=== PATIENT | female | born 1970 | race Two or more races ===

== ENCOUNTER 2017-12-04 20:44 | Emergency (ER) | payer SELFPAY ==
[2017-12-04] MEDS ORDERED: NORMAL SALINE 1000 ML 1,000 ML IV ONE (22:32)
[2017-12-04] MEDS ORDERED: ONDANSETRON HCL INJ/PF 4 MG/2 ML SDV IV ONE (22:33)
[2017-12-04] MEDS ORDERED: MORPHINE SULFATE 10 MG/ML INJ IV ONE (22:33)
[2017-12-04] MEDS ORDERED: KETOROLAC TROMETHAMINE INJ/PF 30 MG/1 ML SDV IV ONE (22:33)
--- NOTE | 2017-12-04 22:38 | ER Document Report ---
ED General - General Chief Complaint: Possible Kidney Stone Stated Complaint: FLANK PAIN Time Seen by Provider: 12/04/17 22:32 TRAVEL OUTSIDE OF THE [place] IN LAST 30 DAYS: No - HPI Notes: Patient is a 46-year-old female with a history of kidney stones who presents ED complaining of left flank pain, urinary urgency, voiding small amounts 5 hours. Patient states that she also has associated nausea and vomiting because of the pain. Patient states that her flank pain radiates around to her left groin. Patient states that she did take half of a Percocet prior to arrival and noted that those tablets are 2 years old. Denies any headache, fever, URI, sore throat, chest pain, palpitations, syncope, cough, shortness of breath, wheeze, dyspnea, diarrhea, urinary retention, dysuria, hematuria, loss of control of bowel or bladder, numbness/tingling, saddle anesthesia, muscle paralysis/weakness, or rash. - Related Data Allergies/Adverse Reactions: cefoxitin [Cefoxitin] Allergy (Severe, Verified 12/04/17 20:51) Anaphylaxis Sulfa (Sulfonamide Antibiotics) Allergy (Verified 12/04/17 20:51) codeine [Codeine] Adverse Reaction (Severe, Verified 12/04/17 20:51) VOMITING hydrocodone bitartrate [From Vicodin] Adverse Reaction (Severe, Verified 20:51) projectile vomiting oxycodone HCl [From Percocet] Adverse Reaction (Severe, Verified 12/04/17 20:51) projectile vomiting Past Medical History - Social History Smoking Status: Never Smoker Family History: Reviewed & Not Pertinent Pulmonary Medical History: Reports: Hx Pneumonia Endocrine Medical History: Reports: Hx Diabetes Mellitus Type 2, Hx Hypothyroidism Renal/ Medical History: Reports: Hx Kidney Stones GI Medical History: Reports: Hx Ulcer Traumatic Medical History: Reports: Hx Fractures - finger Past Surgical History: Reports: Hx Appendectomy, Hx Kidney (Renal Surgery) - biopsy right kidney, Hx Mastectomy - lumpectomy, left, Hx Tonsillectomy, Hx Tubal Ligation - Immunizations Hx Diphtheria, Pertussis, Tetanus Vaccination: Yes Review of Systems - Review of Systems Notes: REVIEW OF SYSTEMS: CONSTITUTIONAL : Denies fever, chills, or sweats. Denies recent illness. EENT: Denies eye, ear, throat, or mouth pain or symptoms. Denies nasal or sinus congestion or discharge. Denies throat, tongue, or mouth swelling or difficulty swallowing. CARDIOVASCULAR: Denies chest pain. Denies palpitations or racing or irregular heart beat. Denies ankle edema. RESPIRATORY: Denies cough, cold, or chest congestion. Denies shortness of breath, difficulty breathing, or wheezing. GASTROINTESTINAL: see hpi GENITOURINARY: see hpi FEMALE GENITOURINARY: Denies vaginal bleeding, heavy or abnormal periods, irregular periods. Denies vaginal discharge or odor. MUSCULOSKELETAL: see hpi SKIN: Denies rash, lesions or sores. NEUROLOGICAL: Denies confusion or altered mental status. Denies passing out or loss of consciousness. Denies dizziness or lightheadedness. Denies headache. Denies weakness or paralysis or loss of use of either side. Denies problems with gait or speech. Denies sensory loss, numbness, or tingling. Denies seizures. ALL OTHER SYSTEMS REVIEWED AND NEGATIVE. Dictation was performed using [employer] voice recognition software Physical Exam - Vital signs Vitals: Temp Pulse Resp BP Pulse Ox 98.8 F 93 18 177/96 H 95 12/04/17 22:01 12/04/17 22:01 12/04/17 22:01 12/04/17 22:01 12/04/17 22:01 Notes: PHYSICAL EXAMINATION: GENERAL: Well-appearing, well-nourished and in no acute respiratory distress, but does appear to be in discomfort. A&Ox4 LUNGS: Breath sounds clear to auscultation bilaterally and equal. No wheezes rales or rhonchi. HEART: Regular rate and rhythm without murmurs, rubs, gallops. ABDOMEN: Soft, nontender, nondistended abdomen. No guarding, no rebound. No masses appreciated. Normal bowel sounds present. No CVA tenderness bilaterally. Musculoskeletal: FROM to passive/active. Strength 5+/5. Back: FROM. Strength 5+/5. Non-tender. No obvious erythema or ecchymosis. Extremities: No cyanosis, clubbing, or edema b/l. Peripheral pulses 2+. Capillary refill less than 3 seconds. NEUROLOGICAL: Normal speech, normal gait. Normal sensory, motor exams PSYCH: Normal mood, normal affect. SKIN: Warm, Dry, normal turgor, no rashes or lesions noted. Course - Re-evaluation Re-evalutation: 12/05/17 00:22 Patient is an afebrile, well-hydrated, 46-year-old female who presents to the ED with a sub-5 mm distal ureteral calculi on the left side without urosepsis. Vitals are stable. PE is otherwise unremarkable. CBC showed a mildly elevated white count, but patient has been vomiting. CMP and urinalysis are otherwise unremarkable for any acute pathology. Patient was given fluids, Zofran, morphine, and Toradol. Low suspicion/risk for acute appendicitis, bowel obstruction, acute cholecystitis, acute cholangitis, perforated diverticulitis, incarcerated hernia, pancreatitis, perforated ulcer, peritonitis, sepsis, pelvic inflammatory disease, ectopic , tubo-ovarian abscess, ovarian torsion, or other systemic emergent condition at this time. Patient is aware that her condition can change from initial presentation and she needs to monitor symptoms closely and seek medical attention if any acute changes. Conservative measures otherwise for symptoms. Recheck with your PCM in 3-5 days. Consider consult with a Urologist. Return to the ED with any worsening/ concerning symptoms otherwise as reviewed in discharge. Patient is in agreement. - Vital Signs Vital signs: Temp Pulse Resp BP Pulse Ox 98.8 F 93 18 177/96 H 95 12/04/17 22:01 12/04/17 22:01 12/04/17 22:01 12/04/17 22:01 12/04/17 22:01 - Laboratory Result Diagrams: 12/04/17 22:20 12/04/17 22:20 Laboratory results interpreted by me: 12/04/17 22:20 WBC 15.5 H RDW 14.1 H Seg Neutrophils % 78.7 H Absolute Neutrophils 12.2 H Discharge - Discharge Clinical Impression: Ureteral stone Condition: Stable Disposition: HOME, SELF-CARE Instructions: Kidney Stone ([facility]) Additional Instructions: Maintain adequate fluid and food intake P[place]as diet ([employer] Bananas, rice, apples, toast, etc Zofran as needed Take flomax as directed tylenol if needed Monitor for any worsening symptoms Make sure you are staying hydrated enough to urinate and have normal BM's Recheck with your PCM in 3-5 days Consider consult with Urology for ongoing/worsening symptoms Return to the ED with any worsening symptoms and/or development of fever, headache, chest pain, palpitations, syncope, shortness of breath, trouble breathing, abdominal pain, n/v/d, blood in stool/urine, weakness, or other worsening symptoms that are concerning to you. Prescriptions: Morphine Sulfate [Morphine Ir 15 Mg Tablet] 15 mg PO QID PRN #10 tablet PRN Reason: Ondansetron [Zofran Odt 4 mg Tablet] 1 - 2 tab PO Q4H PRN #15 tab.rapdis PRN Reason: For Nausea/Vomiting Tamsulosin HCl [Flomax] 0.4 mg PO DAILY #10 cap.er.24h Forms: Elevated Blood Pressure Referrals: LINDSEY MERCADO MD [Primary Care Provider] - Follow up in 3-5 days [facility] [Provider Group] - Follow up as needed
[2017-12-04 22:55] LABS: ABSOLUTE BASOPHILS # (AUTO) 0.1 10^3/uL (0.0-0.2); ABSOLUTE EOSINOPHILS # (AUTO) 0.2 10^3/uL (0.0-0.6); ABSOLUTE NEUT (AUTO) 12.2 10^3/uL (1.7-8.2); BASOPHILS % (AUTO) 0.5 % (0-2); EOSINOPHILS % (AUTO) 1.2 % (0-6); HEMATOCRIT 40.9 % (36.0-47.0); HEMOGLOBIN 13.3 g/dL (12.0-15.5); LYMPHOCYTES % (AUTO) 13.1 % (13-45); MEAN CORPUSCULAR HGB CONC 32.6 g/dL (32.0-36.0); MEAN CORPUSCULAR VOLUME 83 fl (80-97); MONOCYTES % (AUTO) 6.5 % (3-13); PLATELET COUNT 340 10^3/uL (150-450); RED BLOOD COUNT 4.93 10^6/uL (3.72-5.28); RED CELL DISTRIBUTION WIDTH 14.1 % (11.5-14.0); SEGMENTED NEUTROPHILS % (AUTO) 78.7 % (42-78); TOTAL CELLS COUNTED % (AUTO) 100 %; WHITE BLOOD COUNT 15.5 10^3/uL (4.0-10.5)
[2017-12-04 23:07] LABS: APPEARANCE,URINE SLIGHTLY-CLOUDY; BILIRUBIN,URINE NEGATIVE (NEGATIVE); COLOR,URINE YELLOW; GLUCOSE, URINE NEGATIVE (NEGATIVE); KETONES,URINE NEGATIVE (NEGATIVE); LEUKOCYTE ESTERASE,URINE NEGATIVE (NEGATIVE); NITRITE,URINE NEGATIVE (NEGATIVE); PROTEIN,URINE NEGATIVE (NEGATIVE); URINE SPECIFIC GRAVITY 1.012; UROBILINOGEN,URINE NEGATIVE mg/dL (<2.0)
[2017-12-04 23:28] LABS: ALANINE AMINOTRANSFERASE 25 U/L (9-52); ALBUMIN 4.7 g/dL (3.5-5.0); ALKALINE PHOSPHATASE 76 U/L (38-126); ANION GAP 13 (5-19); ASPARTATE AMINO TRANSFERASE 22 U/L (14-36); BILIRUBIN,DIRECT 0.3 mg/dL (0.0-0.4); BILIRUBIN,TOTAL 0.3 mg/dL (0.2-1.3); BLOOD UREA NITROGEN 18 mg/dL (7-20); CARBON DIOXIDE 26 mmol/L (22-30); CHLORIDE 100 mmol/L (98-107); GLUCOSE 94 mg/dL (75-110); LIPASE 64.6 U/L (23-300); POTASSIUM 3.9 mmol/L (3.6-5.0); SODIUM 139.1 mmol/L (137-145); TOTAL PROTEIN 7.7 g/dL (6.3-8.2)
--- NOTE | 2017-12-05 00:02 | RADIOLOGY REPORT (SQ) ---
EXAM DESCRIPTION: CT LTD RENAL STONE PROTOCOL ON COMPLETED DATE/TIME: 12/04/2017 11:51 pm REASON FOR STUDY: left flank pain COMPARISON: 04/17/2016 TECHNIQUE: CT scan of the abdomen and pelvis performed without intravenous or oral contrast. Images reviewed with lung, soft tissue, and bone windows. Reconstructed coronal and sagittal MPR images revi ewed. All images stored on PACS. All CT scanners at this facility use dose modulation, iterative reconstruction, and/or weight based d osing when appropriate to reduce radiation dose to as low as reasonably achievable (ALARA). [facility]: Dose Right [facility]: CareDose [facility]: Dose Right [facility]: Teradose 4D [facility]: Smart [employer] RADIATION DOSE: mGy. LIMITATIONS: None. FINDINGS: LOWER CHEST: No significant findings. No nodules or infiltrates. NON-CONTRASTED LIVER, SPLEEN, ADRENALS: Evaluation limited by lack of IV contrast. No identified sign ificant masses. PANCREAS: No masses. No peripancreatic inflammatory changes. GALLBLADDER: No identified stones by CT criteria. No inflammatory changes to suggest cholecystitis. RIGHT KIDNEY AND URETER: No suspicious masses. Assessment limited by lack of IV contrast. No signif icant calcifications. No hydronephrosis or hydroureter. LEFT KIDNEY AND URETER: No suspicious masses. Assessment limited by lack of IV contrast. No signifi cant calcifications. Mild hydronephrosis and hydroureter secondary to U tandem sub 5 mm calculi the UV junction. AORTA AND RETROPERITONEUM: No aneurysm. No retroperitoneal masses or adenopathy. BOWEL AND PERITONEAL CAVITY: No obvious masses or inflammatory changes. No free fluid. APPENDIX: Surgically absent. PELVIS, BLADDER, AND ABDOMINAL WALL:No abnormal masses. No free fluid. Bladder normal. BONES: No significant findings. OTHER: No other significant finding. IMPRESSION: Mild obstructive uropathy on the left secondary to tandem sub 5 mm calculi in the distal left ureter. COMMENT: Quality ID # [id number]: Final reports with documentation of one or more dose reduction techniques (e.g., Automated exposure control, adjustment of the mA and/or kV according to patient size, use of iterative reconstruction technique) TECHNICAL DOCUMENTATION: JOB ID: [id number]- All Rights Reserved
[2017-12-05] MEDS ORDERED: HYDROCODONE/ACETAMINOPHEN 5-325 MG (6 TAB/ER DISP) PO PRN (00:25)
[2017-12-05 01:01] VITALS: BP 133/81
== END 2017-12-05 01:36 | disposition home or self-care (01) ==
LOC: ER 20:44
DX: N20.1 Calculus of ureter (principal); R10.9 Unspecified abdominal pain; R39.15 Urgency of urination
CPT/HCPCS: 99284; 96361; 96374; 96375; 36415; 87086; 83690; 85025; 80053; 81001; 76380; J1885; J2270; J2405; J7030

== ENCOUNTER 2017-12-17 10:18 | Emergency (ER) | payer SELFPAY ==
[2017-12-17] MEDS ORDERED: KETOROLAC TROMETHAMINE 60 MG/2 ML SDV IM ONE (10:41)
[2017-12-17] MEDS ORDERED: ONDANSETRON 4 MG TAB.RAPDIS PO ONE ×2 (10:41→12:46)
[2017-12-17] MEDS ORDERED: NORMAL SALINE 1000 ML 1,000 ML IV ONE ×2 (10:43→10:46)
--- NOTE | 2017-12-17 10:43 | ER Document Report ---
ED Medical Screen (RME) - General Mode of Arrival: Ambulatory Information source: Patient TRAVEL OUTSIDE OF THE [place] 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 Was found to have kidney stone on the left, multiple, urine dipstick postitive nitrite and leuk in the office. Still on Flomax. No fever. Nausea with some vomiting. Pain 5/5. (DOING,GUZMAN) - Related Data Allergies/Adverse Reactions: cefoxitin [Cefoxitin] Allergy (Severe, Verified 12/04/17 20:51) Anaphylaxis Sulfa (Sulfonamide Antibiotics) Allergy (Verified 12/04/17 20:51) codeine [Codeine] Adverse Reaction (Severe, Verified 12/04/17 20:51) VOMITING hydrocodone bitartrate [From Vicodin] Adverse Reaction (Severe, Verified 20:51) projectile vomiting oxycodone HCl [From Percocet] Adverse Reaction (Severe, Verified 12/04/17 20:51) projectile vomiting Past Medical History Pulmonary Medical History: Reports: Hx Pneumonia Endocrine Medical History: Reports: Hx Diabetes Mellitus Type 2, Hx Hypothyroidism Renal/ Medical History: Reports: Hx Kidney Stones. Denies: Hx Peritoneal Dialysis GI Medical History: Reports: Hx Ulcer Traumatic Medical History: Reports: Hx Fractures - finger Past Surgical History: Reports: Hx Appendectomy, Hx Kidney (Renal Surgery) - biopsy right kidney, Hx Mastectomy - lumpectomy, left, Hx Tonsillectomy, Hx Tubal Ligation - Immunizations Hx Diphtheria, Pertussis, Tetanus Vaccination: Yes - Vital signs Vitals: Temp Pulse Resp BP Pulse Ox 98.8 F 99 20 178/103 H 98 12/17/17 10:37 12/17/17 10:37 12/17/17 10:37 12/17/17 10:37 12/17/17 10:37 - Vital Signs Vital signs: Temp Pulse Resp BP Pulse Ox 98.8 F 99 20 178/103 H 98 12/17/17 10:37 12/17/17 10:37 12/17/17 10:37 12/17/17 10:37 12/17/17 10:37
[2017-12-17] MEDS ORDERED: MORPHINE SULFATE 10 MG/ML INJ IM ONE (10:45)
[2017-12-17 11:51] LABS: APPEARANCE,URINE CLEAR; BILIRUBIN,URINE NEGATIVE (NEGATIVE); COLOR,URINE YELLOW; GLUCOSE, URINE NEGATIVE (NEGATIVE); KETONES,URINE NEGATIVE (NEGATIVE); LEUKOCYTE ESTERASE,URINE NEGATIVE (NEGATIVE); NITRITE,URINE NEGATIVE (NEGATIVE); PROTEIN,URINE NEGATIVE (NEGATIVE); URINE SPECIFIC GRAVITY 1.014; UROBILINOGEN,URINE NEGATIVE mg/dL (<2.0)
--- NOTE | 2017-12-17 12:07 | RADIOLOGY REPORT (SQ) ---
EXAM DESCRIPTION: CT LTD RENAL STONE PROTOCOL ON COMPLETED DATE/TIME: 12/17/2017 11:40 am REASON FOR STUDY: left flank LLQ pain COMPARISON: 12/04/2017. TECHNIQUE: CT scan of the abdomen and pelvis performed without intravenous or oral contrast. Images reviewed with lung, soft tissue, and bone windows. Reconstructed coronal and sagittal MPR images revi ewed. All images stored on PACS. All CT scanners at this facility use dose modulation, iterative reconstruction, and/or weight based d osing when appropriate to reduce radiation dose to as low as reasonably achievable (ALARA). [facility]: Dose Right [facility]: CareDose [facility]: Dose Right [facility]: Teradose 4D [facility]: Smart [employer] RADIATION DOSE: CT Rad equipment meets quality standard of care and radiation dose reduction techniq ues were employed. CTDIvol: 6.7 mGy. DLP: 352 mGy-cm.mGy. LIMITATIONS: None. FINDINGS: LOWER CHEST: No significant findings. No nodules or infiltrates. NON-CONTRASTED LIVER, SPLEEN, ADRENALS: Evaluation limited by lack of IV contrast. No identified sign ificant masses. PANCREAS: No masses. No peripancreatic inflammatory changes. GALLBLADDER: No identified stones by CT criteria. No inflammatory changes to suggest cholecystitis. RIGHT KIDNEY AND URETER: No suspicious masses. Assessment limited by lack of IV contrast. No signif icant calcifications. No hydronephrosis or hydroureter. LEFT KIDNEY AND URETER: No suspicious masses. Assessment limited by lack of IV contrast. Calculi in the distal ureter at the ureteral vesicular junction, measuring 2 and 4 mm. Moderate hydronephrosi s and hydroureter. AORTA AND RETROPERITONEUM: No aneurysm. No retroperitoneal masses or adenopathy. BOWEL AND PERITONEAL CAVITY: No obvious masses or inflammatory changes. No free fluid. APPENDIX: Surgically absent. PELVIS, BLADDER, AND ABDOMINAL WALL:No abnormal masses. No free fluid. Bladder normal. BONES: No significant findings. OTHER: No other significant finding. IMPRESSION: 1. CALCULI IN THE DISTAL LEFT URETER AT THE URETEROVESICULAR JUNCTION, MEASURING 2 AND 4 MM. MODERAT E HYDRONEPHROSIS AND HYDROURETER. SIMILAR APPEARANCE TO THE PRIOR STUDY ALTHOUGH THE DEGREE OF HYDRO NEPHROSIS AND HYDROURETER APPEARS SLIGHTLY WORSE. 2. NO OTHER SIGNIFICANT OR ACUTE PROCESS IN THE ABDOMEN OR PELVIS. COMMENT: Quality ID # [id number]: Final reports with documentation of one or more dose reduction techniques (e.g., Automated exposure control, adjustment of the mA and/or kV according to patient size, use of iterative reconstruction technique) TECHNICAL DOCUMENTATION: JOB ID: [id number] [employer]- All Rights Reserved
[2017-12-17] MEDS ORDERED: MORPHINE SULFATE 10 MG/ML INJ IV ONE (12:46)
--- NOTE | 2017-12-17 12:53 | ER Document Report ---
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 Nausea with vomiting. Severe pain 5/5. No fever. dipstick urine had leuk and positive nitrite in the office. TRAVEL OUTSIDE OF THE [place] IN LAST 30 DAYS: No - Related Data Allergies/Adverse Reactions: cefoxitin [Cefoxitin] Allergy (Severe, Verified 12/04/17 20:51) Anaphylaxis Sulfa (Sulfonamide Antibiotics) Allergy (Verified 12/04/17 20:51) codeine [Codeine] Adverse Reaction (Severe, Verified 12/04/17 20:51) VOMITING hydrocodone bitartrate [From Vicodin] Adverse Reaction (Severe, Verified 20:51) projectile vomiting oxycodone HCl [From Percocet] Adverse Reaction (Severe, Verified 12/04/17 20:51) projectile vomiting Past Medical History - General Information source: Patient - Social History Smoking Status: Never Smoker Chew tobacco use (# tins/day): No Frequency of alcohol use: None Drug Abuse: None Lives with: Spouse/Significant other Family History: Reviewed & Not Pertinent Patient has suicidal ideation: No Patient has homicidal ideation: No Pulmonary Medical History: Reports: Hx Pneumonia Endocrine Medical History: Reports: Hx Diabetes Mellitus Type 2, Hx Hypothyroidism Renal/ Medical History: Reports: Hx Kidney Stones. Denies: Hx Peritoneal Dialysis GI Medical History: Reports: Hx Ulcer Traumatic Medical History: Reports: Hx Fractures - finger Past Surgical History: Reports: Hx Appendectomy, Hx Kidney (Renal Surgery) - biopsy right kidney, Hx Mastectomy - lumpectomy, left, Hx Tonsillectomy, Hx Tubal Ligation - Immunizations Hx Diphtheria, Pertussis, Tetanus Vaccination: Yes Review of Systems - Review of Systems Constitutional: No symptoms reported EENT: No symptoms reported Cardiovascular: No symptoms reported Respiratory: No symptoms reported Gastrointestinal: No symptoms reported Genitourinary: See HPI Female Genitourinary: No symptoms reported Musculoskeletal: No symptoms reported Skin: No symptoms reported Hematologic/Lymphatic: No symptoms reported Neurological/Psychological: No symptoms reported Physical Exam - Vital signs Vitals: Temp Pulse Resp BP Pulse Ox 98.8 F 99 20 178/103 H 98 12/17/17 10:37 12/17/17 10:37 12/17/17 10:37 12/17/17 10:37 12/17/17 10:37 Interpretation: Hypertensive - General General appearance: Appears well, Alert, Anxious In distress: Severe - HEENT Head: Normocephalic, Atraumatic Eyes: Normal Pupils: PERRL Neck: Supple - Respiratory Respiratory status: No respiratory distress Chest status: Nontender Breath sounds: Normal Chest palpation: Normal - Cardiovascular Rhythm: Regular Heart sounds: Normal auscultation Murmur: No - Abdominal Inspection: Normal Distension: No distension Bowel sounds: Normal Tenderness: Nontender. No: Tender Organomegaly: No organomegaly - Back Back: Normal, Nontender. No: CVA tenderness - Extremities General upper extremity: Normal inspection, Nontender, Normal color, Normal ROM , Normal temperature General lower extremity: Normal inspection, Nontender, Normal color, Normal ROM , Normal temperature, Normal weight bearing. No: Nica's sign - Neurological Neuro grossly intact: Yes Cognition: Normal Orientation: AAOx4 [place] Coma Scale Eye Opening: Spontaneous Hernando Coma Scale Verbal: Oriented Hernando Coma Scale Motor: Obeys Commands [place] Coma Scale Total: 15 Speech: Normal Motor strength normal: LUE, RUE, LLE, RLE Sensory: Normal - Psychological Associated symptoms: Normal affect, Normal mood - Skin Skin Temperature: Warm Skin Moisture: Dry Skin Color: Normal Skin irregularity: negative: Rash Course - Re-evaluation Re-evalutation: 12/17/17 12:57 CT scan shows similar distal left ureter stones 2 and 4 mm with moderate hydronephrosis and hydroureter ureter which is slightly worse. I have placed a call to [facility]. Patient would prefer to see a urologist in [place]. 12/17/17 13:24 Dr. [facility] is willing to see he in [place], if someone is in [place] office. He will call me back, wants her to continue the flomax. 12/17/17 13:40 pt vomiting again, reglan IV ordered. will send home with pain rx pending the urology visit tomorrow. - Vital Signs Vital signs: Temp Pulse Resp BP Pulse Ox 97.8 F 72 18 140/78 H 99 12/17/17 13:12 12/17/17 13:12 12/17/17 13:12 12/17/17 13:12 12/17/17 13:12 - Laboratory Result Diagrams: 12/17/17 11:53 12/17/17 11:53 Laboratory results interpreted by me: 12/17/17 11:53 WBC 13.4 H RDW 14.2 H Absolute Neutrophils 10.3 H Discharge - Discharge Clinical Impression: distal left ureter stones Condition: Good Disposition: HOME, SELF-CARE Additional Instructions: see dr. pina tomorrow at [facility] at 9 am, take the flomax pain and nausea medication prescriptions to er if worse Prescriptions: Oxycodone HCl/Acetaminophen [Percocet 10-325 Mg Tablet] 1 each PO Q4HP PRN #20 tablet PRN Reason: Ondansetron [Zofran Odt] 8 mg PO Q6HP PRN #30 tab.rapdis PRN Reason: Tamsulosin HCl [Flomax 0.4 mg Cap.sr] 0.4 mg PO DAILY #7 cap.sr.24h Forms: Return to Work Referrals: LINDSEY MERCADO MD [Primary Care Provider] - Follow up as needed
[2017-12-17 13:12] LABS: ALANINE AMINOTRANSFERASE 25 U/L (9-52); ALBUMIN 4.6 g/dL (3.5-5.0); ALKALINE PHOSPHATASE 69 U/L (38-126); ANION GAP 9 (5-19); ASPARTATE AMINO TRANSFERASE 18 U/L (14-36); BILIRUBIN,DIRECT 0.4 mg/dL (0.0-0.4); BILIRUBIN,TOTAL 0.4 mg/dL (0.2-1.3); BLOOD UREA NITROGEN 15 mg/dL (7-20); CALCIUM 10.2 mg/dL (8.4-10.2); CARBON DIOXIDE 27 mmol/L (22-30); CHLORIDE 103 mmol/L (98-107); GLUCOSE 105 mg/dL (75-110); POTASSIUM 4.8 mmol/L (3.6-5.0); SODIUM 138.9 mmol/L (137-145); TOTAL PROTEIN 7.8 g/dL (6.3-8.2)
[2017-12-17 13:13] VITALS: BP 140/78
[2017-12-17] MEDS ORDERED: METOCLOPRAMIDE HCL INJ/PF 10 MG/2 ML SDV IV ONE (13:40)
[2017-12-17 13:48] LABS: ABSOLUTE BASOPHILS # (AUTO) 0.1 10^3/uL (0.0-0.2); ABSOLUTE EOSINOPHILS # (AUTO) 0.2 10^3/uL (0.0-0.6); ABSOLUTE LYMPHOCYTES (AUTO) 1.8 10^3/uL (0.5-4.7); ABSOLUTE NEUT (AUTO) 10.3 10^3/uL (1.7-8.2); BASOPHILS % (AUTO) 0.7 % (0-2); EOSINOPHILS % (AUTO) 1.5 % (0-6); HEMATOCRIT 40.7 % (36.0-47.0); HEMOGLOBIN 13.4 g/dL (12.0-15.5); LYMPHOCYTES % (AUTO) 13.5 % (13-45); MEAN CORPUSCULAR HEMOGLOBIN 27.5 pg (27.0-33.4); MEAN CORPUSCULAR VOLUME 83 fl (80-97); MONOCYTES % (AUTO) 7.7 % (3-13); PLATELET COUNT 296 10^3/uL (150-450); RED BLOOD COUNT 4.89 10^6/uL (3.72-5.28); RED CELL DISTRIBUTION WIDTH 14.2 % (11.5-14.0); SEGMENTED NEUTROPHILS % (AUTO) 76.6 % (42-78); TOTAL CELLS COUNTED % (AUTO) 100 %; WHITE BLOOD COUNT 13.4 10^3/uL (4.0-10.5)
== END 2017-12-17 14:21 | disposition home or self-care (01) ==
LOC: ER 10:18
DX: N20.1 Calculus of ureter (principal); R10.32 Left lower quadrant pain; R11.2 Nausea with vomiting, unspecified
CPT/HCPCS: 99284; 96372; 96361; 96374; 96375; 36415; 87086; 85025; 80053; 81001; 76380; J1885; S0119; J2765; J2270; J7030

== ENCOUNTER 2018-08-13 14:17 | Emergency (ER) | payer SELFPAY ==
[2018-08-13 14:30] VITALS: BP 115/64
--- NOTE | 2018-08-13 14:41 | ER Document Report ---
HPI - HPI Pain Level: 3 Notes: Patient presents with chief complaint of left ankle and left knee pain. Patient reports she was walking down some stairs when she landed wrong and felt a large pop. Patient then fell to the ground onto her left knee. Patient was transported to the ED via EMS where she received 100 mcg of fentanyl and 8 mg of Zofran IV. Patient currently denies any pain, ankle is immobilized. - REPRODUCTIVE Reproductive: DENIES: : Past Medical History - General Information source: Patient - Social History Smoking Status: Never Smoker Family History: Reviewed & Not Pertinent - Medical History Medical History: Negative Pulmonary Medical History: Reports: Hx Pneumonia Endocrine Medical History: Reports: Hx Diabetes Mellitus Type 2, Hx Hypothyroidism Renal/ Medical History: Reports: Hx Kidney Stones. Denies: Hx Peritoneal Dialysis GI Medical History: Reports: Hx Ulcer Traumatic Medical History: Reports: Hx Fractures - finger Past Surgical History: Reports: Hx Appendectomy, Hx Kidney (Renal Surgery) - biopsy right kidney, Hx Mastectomy - lumpectomy, left, Hx Tonsillectomy, Hx Tubal Ligation - Immunizations Hx Diphtheria, Pertussis, Tetanus Vaccination: Yes Vertical Provider Document - CONSTITUTIONAL Agree With Documented VS: Yes Notes: PHYSICAL EXAMINATION: GENERAL: Well-appearing, well-nourished and in no acute distress. HEAD: Atraumatic, normocephalic. EYES: Pupils equal round extraocular movements intact, conjunctiva are normal. ENT: Nares patent NECK: Normal range of motion LUNGS: No respiratory distress Musculoskeletal: Limited range of motion to left ankle, pulses present, capillary refill less than 3 seconds, normal sensation distal to injury. Mild swelling noted to medial aspect of left knee. NEUROLOGICAL: Normal speech. PSYCH: Normal mood, normal affect. SKIN: Warm, Dry, normal turgor, no rashes or lesions noted. - INFECTION CONTROL TRAVEL OUTSIDE OF THE [place] IN LAST 30 DAYS: No Course - Re-evaluation Re-evalutation: 08/13/18 16:23 X-rays negative for any acute findings, patient declines the need for any pain medication other than ibuprofen. Patient will be placed in a ankle stirrup splint with Giles wrap and placed on crutches. - Vital Signs Vital signs: Temp Pulse Resp BP Pulse Ox 98.2 F 77 16 115/64 97 08/13/18 14:28 08/13/18 14:28 08/13/18 14:28 08/13/18 14:28 08/13/18 14:28 Procedures - Immobilization Left ankle Pre-Proc Neuro Vasc Exam: Normal Immobilizer type: Giles wrap, Ankle stirrup, Crutches Performed by: PCT Post-Proc Neuro Vasc Exam: Normal Discharge - Discharge Clinical Impression: Ankle sprain Qualifiers: Encounter type: initial encounter Involved ligament of ankle: unspecified ligament Laterality: left Qualified Code(s): S93.402A - Sprain of unspecified ligament of left ankle, initial encounter Condition: Stable Disposition: HOME, SELF-CARE Additional Instructions: SPRAIN: Your injury is a sprain. A sprain results from stretching or tearing of the ligaments, usually from a twisting injury. The ligaments will require time and protection in order to heal properly. Many sprains are quite disabling and should be taken seriously. The usual initial treatment of sprains is cold packs, elevation, and rest of the injured area. Your physician has assessed the seriousness of your ligament injury, and has outlined a treatment plan. Understand that this treatment may change, depending on how you progress. If a re-examination was recommended, it is important that you follow up as instructed. Call the doctor any time if there is severe pain, numbness, or loss of function in the injured area. GILES WRAP: A compression dressing (giles wrap) has been placed. This helps hold the area still. It limits swelling and internal bleeding. The wrap should be comfortably snug -- not tight. You should feel a sense of pressure, but not severe pain under the wrap. Unless the physician tells you otherwise, you can adjust the wrap for comfort. If the wrap causes symptoms suggesting it's too tight -- uncomfortable pressure, swelling or discoloration beyond the wrap, numbness, or severe pain - - you must loosen the wrap. If these symptoms don't resolve promptly, return for re-evaluation. SPRAINED ANKLE: Your sprained ankle results from stretching or tearing of the ligaments which support the ankle. This usually results from twisting the foot inward and under. The ligaments will require time and protection in order to heal properly. Many ankle sprains are quite disabling, and should be taken seriously. The usual treatment for an ankle sprain is cold packs; protection with tape , splints, or wraps; elevation; and staying off the ankle for at least a day. As the ankle improves, you can walk IF it's not painful to bear weight. Sports are best postponed until healing is complete. More serious sprains usually require strengthening exercises after early healing. Your physician has assessed the seriousness of the ligament injury to your ankle. However, the treatment may change, depending on how your ankle progresses. If further exams were recommended, it is important that you follow through. Call the doctor if your foot becomes numb, painful, or severely swollen. ANKLE STIRRUP SPLINT: You are to use an ankle brace called a stirrup splint. This type of brace allows you to place greater stresses on the ankle without risk of re-injury, and is often used for more severe ankle injuries such as avulsion fractures and ligament ruptures. The splint can be worn over a sock or tape. For proper support, wear the splint with a shoe over it. It's important that the splint fit properly. Adjust the heel tension, if needed. If your splint has air bladders, peel back the bottom of each air bladder, then move the Velcro attachment of the heel strap up or down. Air bladder pressure can be adjusted by pulling up the valve at the top, threading the air tube down into the main bladder, then blowing air into the bladder or squeezing it out. The two sides of the stirrup can be moved forward or back on your ankle by changing the attachment of the main straps. If you are unable to use the ankle comfortably in the splint, return for re -evaluation. USE OF CRUTCHES: The doctor has recommended that you not bear weight at this time. You will need to use crutches. Adjust the crutches so the tops come to about two inches under the armpit while you are standing upright. Use your hands -- not your armpits -- to support your weight. To get into a chair, support yourself with one crutch on the injured side. Hold the chair with the other hand, then lower yourself while putting all your weight on the good leg. Going up stairs is `good leg up, step up, then bring up crutches and bad leg.' Down stairs is `bad leg and crutches down, then bring good leg down.' If you develop numbness or swelling in an arm or hand, you are using the crutches incorrectly. Return if you are having any problems with the crutches. ICE & ELEVATION: Apply ice packs frequently against the painful area. Many different schedules are recommended, such as "20 minutes on, 20 minutes off" or "one hour ice, two hours rest." If you need to work, you may need to go longer between ice treatments. You should plan to have the area ice packed AT LEAST one- fourth of the time. The ice should be applied over the wrap, tape, or splint, or over a layer of cloth -- not directly against the skin. Some ice bags have a built-in cloth and can be put directly on the skin. Your injured part should be elevated as much as possible over the next 48 hours. Try to keep the injury above the level of the heart. Avoid use of the injured area. Elevation and rest will decrease the swelling. USE OF JPLT-GET-FKRGSCP IBUPROFEN: Ibuprofen (Advil, Nuprin, Medipren, Motrin IB) is a medication for fever and pain control. In addition, it has anti- inflammatory effects which may be beneficial, especially in the treatment of injuries. It's best to take ibuprofen with food. Persons with ulcer disease or allergy to aspirin should notify their physician of this before taking ibuprofen. Ibuprofen can be given every four to six hours, for a total of four doses daily. Age Pain or fever dose Antiinflammatory dose 6-8 yr 200 mg (1 tab) 200 mg (1 tab) 9-11 yr 200 mg (1 tab) 200-400 mg (1-2 tab) 11-14 yr 200-400 mg (1-2 tab) 400 mg (2 tab) 15-adult 400 mg (2 tab) 600 mg (3 tab) FOLLOW-UP CARE: If you have been referred to a physician for follow-up care, call the physician s office for an appointment as you were instructed or within the next two days. If you experience worsening or a significant change in your symptoms, notify the physician immediately or return to the Emergency Department at any time for re-evaluation. Your x-ray results today were negative for any acute fracture or dislocation. Please use the ankle stirrup splint as needed for support. Please use the crutches as well, if you do not improve over the next 1-2 weeks she may need to follow-up with an orthopedist. I cannot definitively rule out an internal ligament injury. Prescriptions: Ibuprofen 800 mg PO TID #30 tablet Referrals: LINDSEY MERCADO MD [Primary Care Provider] - Follow up as needed TIAGO FORMAN MD [ACTIVE STAFF] - Follow up as needed
--- NOTE | 2018-08-13 15:40 | RADIOLOGY REPORT (SQ) ---
EXAM DESCRIPTION: ANKLE LEFT COMPLETE COMPLETED DATE/TIME: 08/13/2018 3:33 pm REASON FOR STUDY: fall with pain COMPARISON: None. NUMBER OF VIEWS: Three views. TECHNIQUE: AP, lateral, and oblique radiographic images acquired of the left ankle. LIMITATIONS: None. FINDINGS: MINERALIZATION: Normal. BONES: No acute fracture or dislocation. Plantar calcaneal spur. JOINTS: No effusions. SOFT TISSUES: No soft tissue swelling. No foreign body. OTHER: No other significant finding. IMPRESSION: 1. NEGATIVE STUDY OF THE LEFT ANKLE. 2. Calcaneal spur. TECHNICAL DOCUMENTATION: JOB ID: [id number] [employer]- All Rights Reserved Reading location - IP/workstation name: [email or web address]
--- NOTE | 2018-08-13 15:43 | RADIOLOGY REPORT (SQ) ---
EXAM DESCRIPTION: KNEE LEFT 4 VIEW COMPLETED DATE/TIME: 08/13/2018 3:33 pm REASON FOR STUDY: fall with pain COMPARISON: None. NUMBER OF VIEWS: Four views. TECHNIQUE: AP, lateral, and both oblique radiographic images acquired of the left knee. LIMITATIONS: None. FINDINGS: MINERALIZATION: Normal. BONES: No acute fracture or dislocation. No worrisome bone lesions. JOINT: No effusion. SOFT TISSUES: No soft tissue swelling. No radio-opaque foreign body. OTHER: No other significant finding. IMPRESSION: NEGATIVE STUDY OF THE LEFT KNEE. NO RADIOGRAPHIC EVIDENCE OF ACUTE INJURY. TECHNICAL DOCUMENTATION: JOB ID: [id number] [employer]- All Rights Reserved Reading location - IP/workstation name: [email or web address]
== END 2018-08-13 17:33 | disposition home or self-care (01) ==
LOC: ER 14:17
DX: S93.402A Sprain of unspecified ligament of left ankle, initial encounter (principal); M25.562 Pain in left knee; X50.0XXA Overexertion from strenuous movement or load, initial encounter; E11.9 Type 2 diabetes mellitus without complications; E03.9 Hypothyroidism, unspecified; Z87.442 Personal history of urinary calculi
CPT/HCPCS: 99284; 73610; 73564; L1902

== ENCOUNTER → 2019-03-26 | Outpatient (CLI) | payer SELFPAY | LOC: HHS 09:36 | DX: Z12.31 Encounter for screening mammogram for malignant neoplasm of breast (principal) ==

== ENCOUNTER 2019-04-05 06:26 | Emergency (ER) | payer SELFPAY ==
[2019-04-05] MEDS ORDERED: ONDANSETRON HCL INJ/PF 4 MG/2 ML SDV IV ONE (06:42)
[2019-04-05] MEDS ORDERED: NORMAL SALINE 1000 ML 1,000 ML IV ONE (06:42)
--- NOTE | 2019-04-05 06:44 | ER Document Report ---
ED General - General Chief Complaint: Vomiting/Diarrhea Stated Complaint: VOMITING,POSSIBLE FOOD POISONING Time Seen by Provider: 04/05/19 06:38 Primary Care Provider: LINDSEY MERCADO MD [Primary Care Provider] - Follow up as needed TRAVEL OUTSIDE OF THE [place] IN LAST 30 DAYS: No - HPI Patient complains to provider of: n/v/d Notes: Well-appearing [age]-year-old female presents with approximately 6 hours of nausea, vomiting, loose watery diarrhea. Patient denies fever chills syncope pain. Patient is a diabetic female is on only metformin. Denies all other symptoms. - Related Data Allergies/Adverse Reactions: cefoxitin [Cefoxitin] Allergy (Severe, Verified 08/13/18 14:18) Anaphylaxis Sulfa (Sulfonamide Antibiotics) Allergy (Verified 08/13/18 14:18) codeine [Codeine] Adverse Reaction (Severe, Verified 08/13/18 14:18) VOMITING hydrocodone bitartrate [From Vicodin] Adverse Reaction (Severe, Verified 08/13/18 14:18) projectile vomiting oxycodone HCl [From Percocet] Adverse Reaction (Severe, Verified 08/13/18 14:18) projectile vomiting Past Medical History - Social History Smoking Status: Unknown if Ever Smoked Family History: Reviewed & Not Pertinent - Past Medical History Cardiac Medical History: Reports: Hx Hypertension Pulmonary Medical History: Reports: Hx Pneumonia, Hx Tuberculosis - hypothyroidism Endocrine Medical History: Reports: Hx Diabetes Mellitus Type 2, Hx Hypothyroidism Renal/ Medical History: Reports: Hx Kidney Stones. Denies: Hx Peritoneal Dialysis GI Medical History: Reports: Hx Ulcer Traumatic Medical History: Reports: Hx Fractures - finger Past Surgical History: Reports: Hx Appendectomy, Hx Kidney (Renal Surgery) - biopsy right kidney, Hx Mastectomy - lumpectomy, left, Hx Tonsillectomy, Hx Tubal Ligation - Immunizations Hx Diphtheria, Pertussis, Tetanus Vaccination: Yes Review of Systems - Review of Systems Notes: Nausea vomiting diarrhea REVIEW OF SYSTEMS: CONSTITUTIONAL: -fevers, -chills EENT: -eye pain, -difficulty swallowing, -nasal congestion CARDIOVASCULAR: -chest pain, -syncope. RESPIRATORY: -cough, -SOB GASTROINTESTINAL: -abdominal pain, positive for nausea vomiting diarrhea GENITOURINARY: -dysuria, -hematuria MUSCULOSKELETAL: -back pain, -neck pain SKIN: -rash or skin lesions. HEMATOLOGIC: -easy bruising or bleeding. LYMPHATIC: -swollen, enlarged glands. NEUROLOGICAL: -altered mental status or loss of consciousness, -headache, - neurologic symptoms PSYCHIATRIC: -anxiety, -depression. ALL OTHER SYSTEMS REVIEWED AND NEGATIVE. Physical Exam - Vital signs Vitals: Temp Pulse Resp BP Pulse Ox 99.3 F 98 20 111/74 99 04/05/19 06:27 04/05/19 06:27 04/05/19 06:27 04/05/19 06:04/05/19 06:27 - Notes Notes: PHYSICAL EXAMINATION: GENERAL: Well-appearing, well-nourished and in no acute distress. HEAD: Atraumatic, normocephalic. EYES: Pupils equal round and reactive to light, extraocular movements intact, sclera anicteric, conjunctiva are normal. ENT: nares patent, oropharynx clear without exudates. Moist mucous membranes. NECK: Normal range of motion, supple without lymphadenopathy LUNGS: Breath sounds clear to auscultation bilaterally and equal. No wheezes rales or rhonchi. HEART: Regular rate and rhythm without murmurs ABDOMEN: Soft, nontender, normoactive bowel sounds. No guarding, no rebound. No masses appreciated. EXTREMITIES: Normal range of motion, no pitting or edema. No cyanosis. NEUROLOGICAL: Cranial nerves grossly intact. Normal speech, normal gait. Normal sensory and motor exams. PSYCH: Normal mood, normal affect. SKIN: Warm, Dry, normal turgor, no rashes or lesions noted. Course - Vital Signs Vital signs: Temp Pulse Resp BP Pulse Ox 99.3 F 98 20 111/74 99 04/05/19 06:27 04/05/19 06:27 04/05/19 06:27 04/05/19 06:27 04/05/19 06:27 04/05/19 07:47 She is feeling much improved. Given fluid resuscitation antiemetics and analgesia. As her kidney function no electrolyte abnormality. Patient will be discharged home with more oral antiemetics. Follow-up PCP - Laboratory Result Diagrams: 04/05/19 06:50 04/05/19 06:50 Laboratory results interpreted by me: 04/05/19 04/05/19 06:50 06:50 WBC 16.3 H RDW 14.8 H Seg Neuts % (Manual) 88 H Lymphocytes % (Manual) 7 L Abs Neuts (Manual) 14.3 H Chloride 108 H Glucose 136 H ALT 59 H Discharge - Discharge Clinical Impression: Gastroenteritis Condition: Stable Disposition: HOME, SELF-CARE Instructions: Diarrhea, Nonspecific ([facility]) Additional Instructions: See your PCP Prescriptions: Ondansetron [Zofran Odt 4 mg Tablet] 1 - 2 tab PO Q4H PRN #15 tab.rapdis PRN Reason: For Nausea/Vomiting Referrals: LINDSEY MERCADO MD [Primary Care Provider] - Follow up as needed
[2019-04-05] MEDS ORDERED: KETOROLAC TROMETHAMINE INJ/PF 30 MG/1 ML SDV IV ONE (07:11)
[2019-04-05 07:12] LABS: HEMATOCRIT 43.2 % (36.0-47.0); HEMOGLOBIN 14.2 g/dL (12.0-15.5); MEAN CORPUSCULAR HEMOGLOBIN 27.3 pg (27.0-33.4); MEAN CORPUSCULAR HGB CONC 32.9 g/dL (32.0-36.0); MEAN CORPUSCULAR VOLUME 83 fl (80-97); PLATELET COUNT 318 10^3/uL (150-450); RED CELL DISTRIBUTION WIDTH 14.8 % (11.5-14.0); WHITE BLOOD COUNT 16.3 10^3/uL (4.0-10.5)
[2019-04-05 07:18] LABS: ALANINE AMINOTRANSFERASE 59 U/L (9-52); ALBUMIN 4.2 g/dL (3.5-5.0); ALKALINE PHOSPHATASE 76 U/L (38-126); ANION GAP 9 (5-19); ASPARTATE AMINO TRANSFERASE 35 U/L (14-36); BILIRUBIN,DIRECT 0.2 mg/dL (0.0-0.4); BILIRUBIN,TOTAL 0.7 mg/dL (0.2-1.3); BLOOD UREA NITROGEN 17 mg/dL (7-20); CALCIUM 9.7 mg/dL (8.4-10.2); CARBON DIOXIDE 24 mmol/L (22-30); CHLORIDE 108 mmol/L (98-107); GLUCOSE 136 mg/dL (75-110); POTASSIUM 4.4 mmol/L (3.6-5.0); SODIUM 140.6 mmol/L (137-145); TOTAL PROTEIN 7.8 g/dL (6.3-8.2)
[2019-04-05 07:31] LABS: ABSOLUTE LYMPHOCYTES# (MANUAL) 1.1 10^3/uL (0.5-4.7); ABSOLUTE MONOCYTES # (MANUAL) 0.7 10^3/uL (0.1-1.4); ABSOLUTE NEUTROPHILS# (MANUAL) 14.3 10^3/uL (1.7-8.2); BASOPHILS % (MANUAL) 0 % (0-2); EOSINOPHILS % (MANUAL) 1 % (0-6); LYMPHOCYTES % (MANUAL) 7 % (13-45); MONOCYTES % (MANUAL) 4 % (3-13); SEGMENTED NEUTROPHILS % (MAN) 88 % (42-78); TOTAL CELLS COUNTED 100
[2019-04-05 07:32] LABS: ANISOCYTOSIS SLIGHT; PLATELET COMMENT ADEQUATE; POLYCHROMASIA SLIGHT
[2019-04-05 08:28] LABS: APPEARANCE,URINE CLEAR; BILIRUBIN,URINE NEGATIVE (NEGATIVE); COLOR,URINE YELLOW; GLUCOSE, URINE 50 mg/dL (NEGATIVE); KETONES,URINE NEGATIVE (NEGATIVE); LEUKOCYTE ESTERASE,URINE NEGATIVE (NEGATIVE); NITRITE,URINE NEGATIVE (NEGATIVE); PROTEIN,URINE NEGATIVE (NEGATIVE); URINE SPECIFIC GRAVITY 1.024; UROBILINOGEN,URINE NEGATIVE mg/dL (<2.0)
[2019-04-05 08:31] VITALS: BP 100/53
== END 2019-04-05 08:31 | disposition home or self-care (01) ==
LOC: ER 06:26
DX: K52.9 Noninfective gastroenteritis and colitis, unspecified (principal); R11.10 Vomiting, unspecified; R19.7 Diarrhea, unspecified; I10 Essential (primary) hypertension; E11.9 Type 2 diabetes mellitus without complications; Z87.442 Personal history of urinary calculi; Z88.2 Allergy status to sulfonamides; Z88.6 Allergy status to analgesic agent
CPT/HCPCS: 99284; 96361; 96374; 96375; 36415; 85025; 80053; 81001; J1885; J2405; J7030

== ENCOUNTER 2019-05-29 03:02 | Observation (INO) | payer SELFPAY ==
[2019-05-29] MEDS ORDERED: PROMETHAZINE HCL INJ 25 MG/1 ML VIAL IM ONE (03:28)
[2019-05-29] MEDS ORDERED: MAG HYDROX/AL HYDROX/SIMETH SUSP 30 ML UDCUP PO ONE (03:29)
[2019-05-29] MEDS ORDERED: LIDOCAINE 2% VISCOUS SOLN 20 ML UDCUP PO ONE (03:29)
[2019-05-29] MEDS ORDERED: NORMAL SALINE 1000 ML 1,000 ML IV ONE (03:30)
--- NOTE | 2019-05-29 03:36 | ER Document Report ---
ED General - General Chief Complaint: Epigastric Pain Stated Complaint: EPIGASTRIC PAIN Time Seen by Provider: 05/29/19 03:22 Primary Care Provider: LINDSEY MERCADO MD [Primary Care Provider] - Follow up as needed Notes: Patient is a 48-year-old female who presents with complaint of severe epigastric pain with pain rating to the chest. She also has pain rating to her back. She is been vomiting. She says that she does pass kidney stones a regular basis and says this week she had passed some kidney stones and taking ibuprofen all week. She denies any blood in her emesis. No blood in her stool. She says she has had some milder epigastric pain throughout the last couple days but became severe tonight and therefore she came to the ER. She does have a previous history of gastric ulcers. She also has a previous history of gallbladder pathology. Primary care physician is Dr. Mercado. TRAVEL OUTSIDE OF THE [place] IN LAST 30 DAYS: No - Related Data Allergies/Adverse Reactions: cefoxitin [Cefoxitin] Allergy (Severe, Verified 08/13/18 14:18) Anaphylaxis Sulfa (Sulfonamide Antibiotics) Allergy (Verified 08/13/18 14:18) codeine [Codeine] Adverse Reaction (Severe, Verified 08/13/18 14:18) VOMITING hydrocodone bitartrate [From Vicodin] Adverse Reaction (Severe, Verified 08/13/18 14:18) projectile vomiting oxycodone HCl [From Percocet] Adverse Reaction (Severe, Verified 08/13/18 14:18) projectile vomiting Past Medical History - Social History Smoking Status: Former Smoker Frequency of alcohol use: Rare Drug Abuse: None Family History: Reviewed & Not Pertinent Patient has suicidal ideation: No Patient has homicidal ideation: No - Past Medical History Cardiac Medical History: Reports: Hx Hypertension Pulmonary Medical History: Reports: Hx Pneumonia, Hx Tuberculosis - hyp othyroidism Endocrine Medical History: Reports: Hx Diabetes Mellitus Type 2, Hx Hypothyroidism Renal/ Medical History: Reports: Hx Kidney Stones. Denies: Hx Peritoneal Dialysis GI Medical History: Reports: Hx Ulcer Traumatic Medical History: Reports: Hx Fractures - finger Past Surgical History: Reports: Hx Appendectomy, Hx Kidney (Renal Surgery) - biopsy right kidney, Hx Mastectomy - lumpectomy, left, Hx Tonsillectomy, Hx Tubal Ligation - Immunizations Hx Diphtheria, Pertussis, Tetanus Vaccination: Yes Review of Systems - Review of Systems Notes: My Normal Review Basic REVIEW OF SYSTEMS: CONSTITUTIONAL : Denies fever, chills, or sweats. Denies recent illness. RESPIRATORY: Denies cough, cold, or chest congestion. Denies shortness of breath, difficulty breathing, or wheezing. GASTROINTESTINAL: Epigastric abdominal pain. Recurrent vomiting GENITOURINARY: Denies difficulty urinating, painful urination, burning, frequency, or blood in urine. MUSCULOSKELETAL: Denies neck or back pain or joint pain or swelling. SKIN: Denies rash or skin lesions. NEUROLOGICAL: Denies altered mental status or loss of consciousness. Denies headache. Denies weakness or paralysis or loss of use of either side. Denies problems with gait or speech. Denies sensory or motor loss. ALL OTHER SYSTEMS REVIEWED AND NEGATIVE. Physical Exam - Vital signs Vitals: Resp BP Pulse Ox 16 128/99 H 98 05/29/19 03:05 05/29/19 03:05 05/29/19 03:05 - Notes Notes: General Appearance: Well nourished, alert, cooperative, no acute distress, moderate obvious discomfort. Vitals: reviewed, See vital signs table. Head: no swelling or tenderness to the head Eyes: PERRL, EOMI, Conjuctiva clear Mouth: No decreasd moisture Lungs: No wheezing, No rales, No rhonci, No accessory muscle use, good air exchange bilaterally. Heart: Normal rate, Regular rythm, No murmur, no rub Abdomen: Normal BS, soft, No rigidity, moderate epigastric abdominal tenderness to palpation, No guarding, no rebound, no abdominal masses, no organomegaly Extremities: strength 5/5 in all extremities, good pulses in all extremities, no swelling or tenderness in the extremities, no edema. Skin: warm, dry, appropriate color, no rash Neuro: speech clear, oriented x 3, normal affect, responds appropriately to questions. Course - Re-evaluation Re-evalutation: 05/29/19 06:42 Patient still having large amount of pain. She said the GI cocktail did help some temporarily. Pain is now very intense again. He said no further vomiting. Denies medicines help. Gallbladder ultrasound came back as her having a sludge and a large gallstone neck of the gallbladder. Liver enzymes are in white count are normal. Gallbladder could be contributing to her pain. I do suspect this most likely more a nonbleeding gastric ulcer. I have ordered a CT scan to make sure is nothing further they could potentially going on due to the patient's consistent pain. 05/29/19 08:32 CT scan shows cholecystitis. Gallbladder and CT scan is much worse in appearance in comparison to the ultrasound. I did call back Dr. Cook, general surgeon, and informed him the finding and he agrees to come see the patient for admission. I have ordered Zosyn. Patient is now allowed me to give her some form of opiate pain medicine. I have ordered hemograms morphine. I have ordered Zofran as sometimes the pain medicine will make her nauseous. - Vital Signs Vital signs: Temp Pulse Resp BP Pulse Ox 99.1 F 17 151/94 H 100 05/29/19 03:09 05/29/19 07:01 05/29/19 07:01 05/29/19 07:01 - Laboratory Result Diagrams: 05/29/19 03:18 05/29/19 03:18 Laboratory results interpreted by me: 05/29/19 03:18 Glucose 118 H Discharge - Discharge Clinical Impression: Cholecystitis Abdominal pain Qualifiers: Abdominal location: upper abdomen, unspecified Qualified Code(s): R10.10 - Upper abdominal pain, unspecified Condition: Stable Disposition: ADMITTED INPATIENT Admitting Provider: Surgicalist Unit Admitted: Surgical Floor Referrals: LINDSEY MERCADO MD [Primary Care Provider] - Follow up as needed
[2019-05-29 03:41] LABS: ABSOLUTE BASOPHILS # (AUTO) 0.1 10^3/uL (0.0-0.2); ABSOLUTE EOSINOPHILS # (AUTO) 0.3 10^3/uL (0.0-0.6); ABSOLUTE LYMPHOCYTES (AUTO) 1.6 10^3/uL (0.5-4.7); ABSOLUTE MONOCYTES (AUTO) 0.7 10^3/uL (0.1-1.4); ABSOLUTE NEUT (AUTO) 5.3 10^3/uL (1.7-8.2); BASOPHILS % (AUTO) 1.2 % (0-2); EOSINOPHILS % (AUTO) 4.2 % (0-6); HEMOGLOBIN 12.3 g/dL (12.0-15.5); LYMPHOCYTES % (AUTO) 19.5 % (13-45); MEAN CORPUSCULAR HEMOGLOBIN 27.9 pg (27.0-33.4); MEAN CORPUSCULAR HGB CONC 33.3 g/dL (32.0-36.0); MEAN CORPUSCULAR VOLUME 84 fl (80-97); MONOCYTES % (AUTO) 8.6 % (3-13); PLATELET COUNT 271 10^3/uL (150-450); RED BLOOD COUNT 4.42 10^6/uL (3.72-5.28); RED CELL DISTRIBUTION WIDTH 13.9 % (11.5-14.0); SEGMENTED NEUTROPHILS % (AUTO) 66.5 % (42-78); TOTAL CELLS COUNTED % (AUTO) 100 %
[2019-05-29 04:54] LABS: ALANINE AMINOTRANSFERASE 23 U/L (9-52); ALBUMIN 3.8 g/dL (3.5-5.0); ALKALINE PHOSPHATASE 66 U/L (38-126); ANION GAP 9 (5-19); ASPARTATE AMINO TRANSFERASE 19 U/L (14-36); BILIRUBIN,DIRECT 0.2 mg/dL (0.0-0.4); BILIRUBIN,TOTAL 0.3 mg/dL (0.2-1.3); BLOOD UREA NITROGEN 13 mg/dL (7-20); CALCIUM 9.5 mg/dL (8.4-10.2); CARBON DIOXIDE 24 mmol/L (22-30); CHLORIDE 105 mmol/L (98-107); GLUCOSE 118 mg/dL (75-110); LIPASE 38.5 U/L (23-300); POTASSIUM 4.2 mmol/L (3.6-5.0); SODIUM 138.3 mmol/L (137-145); TOTAL PROTEIN 6.8 g/dL (6.3-8.2)
--- NOTE | 2019-05-29 05:25 | RADIOLOGY REPORT (SQ) ---
EXAM DESCRIPTION: US ABDOMEN DOPPLER LIMITED COMPLETED DATE/TME: 05/29/2019 03:29 CLINICAL HISTORY: 48 years Female, RUQ ultrasound Comparison:Jul 01 2016 LIMITATIONS: None. FINDINGS: Cholecystoses, cholelithiasis/sludge including a 1.4 cm stone at the gallbladder neck, 0.5 cm gallbladder wall thickness, positive sonographic Early's test, liver, a 0.3-cm diameter common bile duct, no intrahepatic ductal dilation, hepatopetal patent flow of the portal vein, 10-cm right kidney, partially obscured pancreas, visualized vasculature/abdominal aorta, and no significant ascites appear otherwise unremarkable. IMPRESSION: 1. Cholelithiasis/sludge including a 1.4 cm stone at the gallbladder neck, and positive sonographic Early's test. Differential diagnosis includes cholecystitis and biliary colic. 2. Cholecystosis.
[2019-05-29] MEDS ORDERED: PANTOPRAZOLE SODIUM 40 MG VIAL IV ONE (06:35)
[2019-05-29] MEDS ORDERED: ACETAMINOPHEN 1,000 MG/100 ML RTUPB IV ONE (07:00)
[2019-05-29] MEDS ORDERED: PIPERACILLIN/TAZOBACTAM 4.5 GM VIAL IV ONE (08:27)
[2019-05-29] MEDS ORDERED: MORPHINE SULFATE 10 MG/ML INJ IV ONE ×2 (08:31→10:10)
[2019-05-29] MEDS ORDERED: ONDANSETRON HCL INJ/PF 4 MG/2 ML SDV IV ONE (08:31)
--- NOTE | 2019-05-29 08:35 | RADIOLOGY REPORT (SQ) ---
EXAM DESCRIPTION: CT ABD/PELVIS WITH IV ONLY COMPLETED DATE/TIME: 05/29/2019 8:17 am REASON FOR STUDY: abdominal pain COMPARISON: CT abdomen pelvis 04/17/2016, 12/04/2017, 12/17/2017 TECHNIQUE: CT scan of the abdomen and pelvis performed using helical scanning technique with dynamic intravenous contrast injection. No oral contrast. Images reviewed with lung, soft tissue, and bone windows. Reconstructed coronal and sagittal MPR images reviewed. Delayed images for evaluation of the urinary system also acquired. All images stored on PACS. All CT scanners at this facility use dose modulation, iterative reconstruction, and/or weight based d osing when appropriate to reduce radiation dose to as low as reasonably achievable (ALARA). [facility]: Dose Right [facility]: CareDose [facility]: Dose Right [facility]: Teradose 4D [facility]: [employer] CONTRAST TYPE AND DOSE: 65 mL of IV Omnipaque 350- low osmolar. RENAL FUNCTION: Creatinine 0.68 RADIATION DOSE: CT Rad equipment meets quality standard of care and radiation dose reduction techniq ues were employed. CTDIvol: 4.8 - 5.4 mGy. DLP: 523 mGy-cm.. LIMITATIONS: None. FINDINGS: LOWER CHEST: No significant findings. No nodules or infiltrates. LIVER: Normal size. No masses. No dilated ducts. SPLEEN: Normal size. No focal lesions. PANCREAS: No masses. No significant calcifications. No adjacent inflammation or peripancreatic fluid collections. Pancreatic duct not dilated. GALLBLADDER: There is diffuse gallbladder wall thickening and abnormal enhancement worrisome for acut e cholecystitis. This best shown on coronal images 19-25 and axial images 30-38. This report was ca lled to Dr. Tse. ADRENAL GLANDS: No significant masses or asymmetry. RIGHT KIDNEY AND URETER: No solid masses. No significant calcifications. No hydronephrosis or hyd roureter. LEFT KIDNEY AND URETER: No solid masses. No significant calcifications. No hydronephrosis or hydr oureter. AORTA AND VESSELS: No aneurysm. No dissection. Renal arteries, SMA, celiac without stenosis. RETROPERITONEUM: No retroperitoneal adenopathy, hemorrhage or masses. BOWEL AND PERITONEAL CAVITY: No masses or inflammatory changes. No free fluid or peritoneal masses. APPENDIX: Normal. PELVIS: No mass. No free fluid. Normal bladder. Normal size female pelvic organs ABDOMINAL WALL: No masses. No hernias. BONES: No significant or acute findings. OTHER: No other significant finding. IMPRESSION: Findings worrisome for acute cholecystitis by CT. TECHNICAL DOCUMENTATION: JOB ID: [id number] Quality ID # [id number]: Final reports with documentation of one or more dose reduction techniques (e.g., Au tomated exposure control, adjustment of the mA and/or kV according to patient size, use of iterative reconstruction technique) 2010 [employer]- All Rights Reserved Reading location - IP/workstation name: [email or web address]
--- NOTE | 2019-05-29 09:46 | EKG REPORT ---
SEVERITY:- BORDERLINE ECG - SINUS RHYTHM PROBABLE LEFT ATRIAL ABNORMALITY : Confirmed by: Lydia Skinner 29-May-2019 09:46:29
[2019-05-29] MEDS ORDERED: GLUCAGON,HUMAN RECOMB 1 MG INJ SUBCUT PRN (10:22)
[2019-05-29] MEDS ORDERED: DEXTROSE 40% GEL 15 GM TUBE PO PRN ×2 (10:22)
[2019-05-29] MEDS ORDERED: MORPHINE SULFATE 10 MG/ML INJ IV PRN ×2 (10:22→11:41)
[2019-05-29] MEDS ORDERED: ONDANSETRON HCL INJ/PF 4 MG/2 ML SDV IV PRN (10:22)
[2019-05-29] MEDS ORDERED: NORMAL SALINE 1000 ML 1,000 ML IV PRN (10:22)
[2019-05-29] MEDS ORDERED: DEXTROSE 50%-WATER 25 GM/50 ML DISP.SYRIN IV PRN ×2 (10:22)
--- NOTE | 2019-05-29 10:22 | PDOC H&P ---
History of Present Illness Admission Date/PCP: 05/29/19 09:03 LINDSEY MERCADO MD Patient complains of: Right upper quadrant pain, nausea, vomiting History of Present Illness: ANNAMARIA DAMON is a 48 year old female with a 1 day history of epigastric/right upper quadrant pain that is constant and severe. She has associated nausea and vomiting. This all began after eating a fatty meal at a constitution party yesterday. The pain was situated in the epigastrium, and radiated through to her back. Nothing makes her pain better. Movement and palpation make her pain worse. Her pain is 10 out of 10. The pain is sharp and stabbing. She denies shortness of breath, headache, fevers, chills, chest pain, melena, hematochezia, hematemesis, blurry vision, orthostasis. She reports that she also has a history of multiple kidney stones. Past Medical History Cardiac Medical History: Reports: Hypertension Pulmonary Medical History: Reports: Pneumonia, Tuberculosis - hypothyroidism Endocrine Medical History: Reports: Diabetes Mellitus Type 2, Hypothyroidism Renal/ Medical History: Reports: Nephrolithiasis Hematology: Denies: Anemia Past Surgical History Past Surgical History: Reports: Appendectomy, Mastectomy - lumpectomy, left, Tonsillectomy, Tubal Ligation Social History Smoking Status: Former Smoker Frequency of Alcohol Use: Occasional Hx Recreational Drug Use: No Hx Prescription Drug Abuse: No Family History Family History: Reviewed & Not Pertinent Parental Family History Reviewed: Yes Children Family History Reviewed: Yes Sibling(s) Family History Reviewed.: Yes Medication/Allergy Home Medications: Levothyroxine Sodium [Synthroid 150 Mcg Tablet] 125 mcg PO DAILY 06/16/12 Metformin HCl [Glucophage 500 Mg Tablet] 500 mg PO QHS 03/03/13 Cetirizine HCl [Zyrtec] 10 mg PO DAILY 07/12/14 Ondansetron [Zofran Odt 4 mg Tablet] 1 - 2 tab PO Q4H PRN #15 tab.rapdis 07/12/14 Oxycodone HCl [Oxy-Ir 5 mg Tablet] 10 mg PO Q6 PRN 07/12/14 Oxycodone HCl/Acetaminophen [Percocet 5-325 mg Tablet] 1 - 2 tab PO Q4H PRN #15 tablet 07/12/14 Tamsulosin HCl [Flomax 0.4 mg Cap.sr] 0.4 mg PO DAILY #7 cap.sr.24h 07/12/14 Ibuprofen [Motrin 600 mg Tablet] 600 mg PO Q8HP PRN #90 tablet 01/17/15 Ondansetron [Zofran Odt 4 mg Tablet] 4 mg PO Q4HP PRN #30 tab.rapdis 01/17/15 Oxycodone HCl 5 mg PO Q6 #20 tablet 01/17/15 Promethazine HCl [Phenergan 25 mg Tablet] 25 - 50 mg PO ASDIR PRN #12 tablet 01/17/15 Tamsulosin HCl [Flomax] 0.4 mg PO DAILY #10 cap.sr.24h 01/17/15 Nitrofurantoin/Nitrofuran Mac [Macrobid 100 mg Capsule] 100 mg PO BID #20 capsule 04/17/16 Ondansetron [Zofran Odt 4 mg Tablet] 1 - 2 tab PO Q4HP PRN #20 tab.rapdis 04/17/16 Oxycodone HCl/Acetaminophen [Percocet 5-325 mg Tablet] 1 tab PO QID #15 tablet 04/17/16 Sucralfate [Carafate 1 gm Tablet] 1 gm PO ACHS #30 tablet 07/01/16 Morphine Sulfate [Morphine Ir 15 Mg Tablet] 15 mg PO QID PRN #10 tablet 12/05/17 Ondansetron [Zofran Odt 4 mg Tablet] 1 - 2 tab PO Q4H PRN #15 tab.rapdis 12/05/17 Tamsulosin HCl [Flomax] 0.4 mg PO DAILY #10 cap.er.24h 12/05/17 Ondansetron [Zofran Odt] 8 mg PO Q6HP PRN #30 tab.rapdis 12/17/17 Oxycodone HCl/Acetaminophen [Percocet 10-325 Mg Tablet] 1 each PO Q4HP PRN #20 tablet 12/17/17 Tamsulosin HCl [Flomax 0.4 mg Cap.sr] 0.4 mg PO DAILY #7 cap.sr.24h 12/17/17 Ibuprofen 800 mg PO TID #30 tablet 08/13/18 Ondansetron [Zofran Odt 4 mg Tablet] 1 - 2 tab PO Q4H PRN #15 tab.rapdis 04/05/19 Allergies/Adverse Reactions: cefoxitin [Cefoxitin] Allergy (Severe, Verified 08/13/18 14:18) Anaphylaxis Sulfa (Sulfonamide Antibiotics) Allergy (Verified 08/13/18 14:18) codeine [Codeine] Adverse Reaction (Severe, Verified 08/13/18 14:18) VOMITING hydrocodone bitartrate [From Vicodin] Adverse Reaction (Severe, Verified 08/13/18 14:18) projectile vomiting oxycodone HCl [From Percocet] Adverse Reaction (Severe, Verified 08/13/18 14:18) projectile vomiting Review of Systems Constitutional: ABSENT: anorexia, chills, fatigue, fever(s), weakness Eyes: ABSENT: visual disturbances Ears: ABSENT: hearing changes Nose, Mouth, and Throat: ABSENT: mouth pain, sore throat Cardiovascular: ABSENT: chest pain, dyspnea on exertion Respiratory: ABSENT: cough Gastrointestinal: PRESENT: abdominal pain, nausea, vomiting. ABSENT: hematemesis, hematochezia, melena Genitourinary: ABSENT: dysuria Musculoskeletal: PRESENT: back pain Integumentary: ABSENT: pruritus, rash Neurological: ABSENT: confusion, convulsions, dizziness, weakness Psychiatric: ABSENT: anxiety, depression Endocrine: ABSENT: cold intolerance, heat intolerance Hematologic/Lymphatic: ABSENT: easy bleeding, easy bruising Physical Exam Vital Signs: Temp Pulse Resp BP Pulse Ox 99.1 F 14 154/97 H 98 05/29/19 03:09 05/29/19 09:00 05/29/19 09:00 05/29/19 09:00 Intake & Output 05/28/19 05/29/19 05/30/19 06:59 06:59 06:59 Intake Total 1000 100 Balance 1000 100 Weight 61.2 kg General appearance: PRESENT: mild distress Head exam: PRESENT: atraumatic, normocephalic Eye exam: PRESENT: EOMI, PERRLA. ABSENT: scleral icterus Mouth exam: PRESENT: moist, neck supple Teeth exam: ABSENT: poor dentation Neck exam: ABSENT: meningismus, tenderness, thyromegaly, tracheal deviation Respiratory exam: PRESENT: clear to auscultation henok, unlabored. ABSENT: chest wall tenderness, tachypnea, wheezes Cardiovascular exam: PRESENT: RRR Pulses: PRESENT: normal radial pulses Vascular exam: PRESENT: normal capillary refill GI/Abdominal exam: PRESENT: guarding, Early's sign, soft, tenderness - RUQ, epigastrium. ABSENT: distended, firm Rectal exam: PRESENT: deferred Extremities exam: ABSENT: clubbing Musculoskeletal exam: ABSENT: deformity Neurological exam: PRESENT: alert, awake, oriented to person, oriented to place, oriented to time, oriented to situation, CN II-XII grossly intact. ABSENT: motor sensory deficit Psychiatric exam: ABSENT: agitated, anxious, depressed Focused psych exam: ABSENT: delusional Skin exam: ABSENT: cyanosis, erythema, jaundice Results Laboratory Results: 05/29/19 03:18 05/29/19 03:18 05/29/19 05/29/19 03:18 03:18 WBC 8.0 RBC 4.42 Hgb 12.3 Hct 37.0 MCV 84 MCH 27.9 MCHC 33.3 RDW 13.9 Plt Count 271 Seg Neutrophils % 66.5 Lymphocytes % 19.5 Monocytes % 8.6 Eosinophils % 4.2 Basophils % 1.2 Absolute Neutrophils 5.3 Absolute Lymphocytes 1.6 Absolute Monocytes 0.7 Absolute Eosinophils 0.3 Absolute Basophils 0.1 Sodium 138.3 Potassium 4.2 Chloride 105 Carbon Dioxide 24 Anion Gap 9 BUN 13 Creatinine 0.68 Est GFR ( Amer) > 60 Est GFR (Non-Af Amer) > 60 Glucose 118 H Calcium 9.5 Total Bilirubin 0.3 AST 19 ALT 23 Alkaline Phosphatase 66 Total Protein 6.8 Albumin 3.8 Lipase 38.5 05/29/19 03:18 Troponin I < 0.012 Impressions: Abdomen Ultrasound 05/29/19 03:29 IMPRESSION: 1. Cholelithiasis/sludge including a 1.4 cm stone at the gallbladder neck, and positive sonographic Early's test. Differential diagnosis includes cholecystitis and biliary colic. 2. Cholecystosis. Abdomen/Pelvis CT 05/29/19 06:37 IMPRESSION: Findings worrisome for acute cholecystitis by CT. Assessment & Plan - Diagnosis (1) Acute cholecystitis Is this a current diagnosis for this admission?: Yes - Plan Summary Plan Summary: This is a 48-year-old female with acute cholecystitis. She has a CT scan confirming gallbladder wall thickening and pericholecystic fluid. She is exceptionally tender to palpation. I will start antibiotics. I have recommend ed cholecystectomy as definitive surgical treatment. This is been discussed with both her and her at length. She is in agreement with the treatment plan. Risks/benefits discussed, informed consent obtained, and all questions answered.
[2019-05-29] MEDS ORDERED: PROMETHAZINE HCL INJ 25 MG/1 ML VIAL IV PRN ×2 (10:26→11:41)
[2019-05-29] MEDS ORDERED: MIDAZOLAM 2 MG/2 ML INJ ONE (11:29)
[2019-05-29] MEDS ORDERED: FENTANYL CITRATE INJ/PF 250 MCG/5 ML AMPULE ONE (11:29)
[2019-05-29] MEDS ORDERED: PROPOFOL INJ 200 MG/20 ML VIAL IV ONE (11:29)
[2019-05-29] MEDS ORDERED: HYDROMORPHONE HCL INJ/PF 2 MG/ML AMPULE ONE (11:29)
[2019-05-29] MEDS ORDERED: BUPIVACAINE HCL 0.25 % INJ/PF (2.5 MG/1 ML) 30 ML VIAL ONE (11:39)
[2019-05-29] MEDS ORDERED: FENTANYL CITRATE INJ/PF 100 MCG/2 ML AMPUL IV PRN ×3 (11:41)
[2019-05-29] MEDS ORDERED: DIPHENHYDRAMINE HCL 50 MG/ML VIAL IV PRN (11:41)
[2019-05-29] MEDS ORDERED: MEPERIDINE HCL/PF INJ 25 MG/1 ML DISP.SYRIN IV PRN (11:41)
--- NOTE | 2019-05-29 13:12 | Operative Report ---
Nonrecallable Operative Report DATE OF SURGERY: 05/29/19 PREOPERATIVE DIAGNOSIS: Acute cholecystitis POSTOPERATIVE DIAGNOSIS: Acute cholecystitis OPERATION: Laparoscopic cholecystectomy SURGEON: ROLA RAMAN ANESTHESIA: GA TISSUE REMOVED OR ALTERED: Gallbladder COMPLICATIONS: None apparent ESTIMATED BLOOD LOSS: 30 cc PROCEDURE: Drains/implants: None. Procedure in detail: After informed consent was obtained, the patient was brought into the operating room and laid in the supine position. The area of the abdomen was prepped and draped in a normal sterile fashion. A curvilinear infraumbilical incision was created within the bounds of a previous scar. Dissection was carried through the subcutaneous tissue using sharp and blunt dissection. The linea alba fascia was incised sharply, the abdomen was entered sharply. The balloon trocar was inserted, and pneumoperitoneum was achieved. A subxiphoid 5 mm port was placed under direct laparoscopic visualization. 2 more 5 mm ports were placed in the right upper quadrant in similar fashion. Atraumatic graspers were placed through the 5 mm ports. The gallbladder was tense and distended. A cyst aspiration needle was used to aspirate approximately 50 cc of thick, dark bile from the lumen of the gallbladder. Next, the gallbladder was grasped with atraumatic graspers and retracted cephalad and laterally. Dissection was begun in the triangle of Calot. There was a dense inflammatory reaction around the infundibulum. Very carefully and meticulously, the triangle of Calot was dissected. The cystic duct and cystic artery were fully visualized and skeletonized, seeing the liver through the triangle. Once the critical view of safety was obtained, the cystic duct and cystic artery were clipped and cut with laparoscopic instruments. They were 3 branches of the cystic artery. After this was completed, the gallbladder was removed from the liver using Bovie electrocautery. The gallbladder was then placed into an Endo Catch bag and pulled out through the umbilicus. The camera was reinserted. The hilum was inspected. It was found to be free of any leakage of blood or bile. Next, the 5 mm trochars were removed under direct laparoscopic visualization. The infraumbilical trocar was removed, and pneumoperitoneum was relieved. The infraumbilical fascia was closed using 0 Vicryl suture in [id number] fashion. The overlying skin was closed using 4-0 Vicryl Rapide suture in subcuticular fashion. A dressing was placed, and the procedure was concluded. All sponge, instrument, and needle counts were correct x2. Condition: Stable.
[2019-05-29] MEDS ORDERED: ACETAMINOPHEN 325 MG TABLET PO PRN (14:33)
[2019-05-29] MEDS ORDERED: GLYCOPYRROLATE 1 MG/5 ML VIAL ONE (14:57)
[2019-05-29] MEDS ORDERED: NEOSTIGMINE METHYLSULFATE 10 MG/10 ML VIAL ONE (14:57)
[2019-05-29] MEDS ORDERED: ROCURONIUM BROMIDE INJ 50 MG/5 ML VIAL IV ONE (14:57)
[2019-05-29] MEDS ORDERED: SUCCINYLCHOLINE CHLORIDE INJ 200 MG/10 ML VIAL ONE (14:57)
[2019-05-29] MEDS ORDERED: KETOROLAC TROMETHAMINE INJ/PF 30 MG/1 ML SDV IV SCH (15:00)
[2019-05-29] MEDS ORDERED: PIPERACILLIN SODIUM/TAZOBACTAM 3.375 GM in NORMAL SALINE 100 ML IV SCH (15:00)
[2019-05-29 16:42] VITALS: BP 147/84
--- NOTE | 2019-05-29 18:33 | PDOC DISCHARGE SUMMARY ---
General - Admit/Disc Date/PCP Admission Date/Primary Care Provider: 05/29/19 09:03 LINDSEY MERCADO MD Discharge Date: 05/29/19 - Discharge Diagnosis (1) Acute cholecystitis Is this a current diagnosis for this admission?: Yes - Additional Information Resuscitation Status: Full Code Discharge Diet: As Tolerated Discharge Activity: No Lifting Over 10 Pounds Home Medications: Levocetirizine Dihydrochloride [Xyzal] 5 mg PO QHS 05/29/19 Levothyroxine Sodium [Synthroid 0.1 mg Tablet] 100 mcg PO DAILY 05/29/19 Lisinopril [Prinivil 40 mg Tablet] 40 mg PO DAILY 05/29/19 Metformin HCl [Metformin HCl ER] 1,000 mg PO DAILY 05/29/19 Phentermine HCl 37.5 mg PO DAILY 05/29/19 Pseudoephedrine HCl [Sudafed] 30 mg PO DAILY 05/29/19 History of Present Illness History of Present Illness: ANNAMARIA DAMON is a 48 year old female with a 1 day history of epigastric/right upper quadrant pain that is constant and severe. She has associated nausea and vomiting. This all began after eating a fatty meal at a [employer] yesterday. The pain was situated in the epigastrium, and radiated through to her back. Nothing makes her pain better. Movement and palpation make her pain worse. Her pain is 10 out of 10. The pain is sharp and stabbing. She denies shortness of breath, headache, fevers, chills, chest pain, melena, hematochezia, hematemesis, blurry vision, orthostasis. She reports that she also has a history of multiple kidney stones. Hospital Course Hospital Course: The patient was taken to the operating room for laparoscopic cholecystectomy. She was found to have acute cholecystitis. Laparoscopic cholecystectomy was completed successfully. Afterwards, the patient was taken to the floor in stable condition. She began ambulating, tolerating diet, and her pain was controlled with oral pain medications. The evening of 05/29/2019, the patient was requesting discharge home. This is reasonable, considering her benign postsurgical course. I will discharge patient home. She has been instructed to contact me with any questions or concerns. Physical Exam Vital Signs: Temp Pulse Resp BP Pulse Ox 97.4 F 54 L 14 147/84 H 97 05/29/19 15:40 05/29/19 16:40 05/29/19 16:40 05/29/19 16:40 05/29/19 16:40 Intake & Output 05/28/19 05/29/19 05/30/19 06:59 06:59 06:59 Intake Total 1000 1560 Output Total 480 Balance 1000 1080 Weight 61.2 kg Results Laboratory Results: 05/29/19 03:18 05/29/19 03:18 05/29/19 05/29/19 03:18 03:18 WBC 8.0 RBC 4.42 Hgb 12.3 Hct 37.0 MCV 84 MCH 27.9 MCHC 33.3 RDW 13.9 Plt Count 271 Seg Neutrophils % 66.5 Lymphocytes % 19.5 Monocytes % 8.6 Eosinophils % 4.2 Basophils % 1.2 Absolute Neutrophils 5.3 Absolute Lymphocytes 1.6 Absolute Monocytes 0.7 Absolute Eosinophils 0.3 Absolute Basophils 0.1 Sodium 138.3 Potassium 4.2 Chloride 105 Carbon Dioxide 24 Anion Gap 9 BUN 13 Creatinine 0.68 Est GFR ( Amer) > 60 Est GFR (Non-Af Amer) > 60 Glucose 118 H Calcium 9.5 Total Bilirubin 0.3 AST 19 ALT 23 Alkaline Phosphatase 66 Total Protein 6.8 Albumin 3.8 Lipase 38.5 05/29/19 03:18 Troponin I < 0.012 Impressions: Abdomen Ultrasound 05/29/19 03:29 IMPRESSION: 1. Cholelithiasis/sludge including a 1.4 cm stone at the gallbladder neck, and positive sonographic Early's test. Differential diagnosis includes cholecystitis and biliary colic. 2. Cholecystosis. Abdomen/Pelvis CT 05/29/19 06:37 IMPRESSION: Findings worrisome for acute cholecystitis by CT. Qualifiers - * PATIENT BEING DISCHARGED WITH ANY OF THE FOLLOWING DIAGNOSIS: No Acute Heart Failure - Is this a Heart Failure Patient?: No Plan Discharge Plan: Discharge home. Diet as tolerated. Activity: No lifting or than 10 pounds x 2 weeks. Follow-up with me in 7 to 10 days. [place] 10/3 2 5 mg p.o. every 6 hours as needed for pain. Ibuprofen 800 mg p.o. 3 times daily with meals. Okay to shower starting Thursday. No tub baths or swimming pools x2 weeks. Time Spent: Less than 30 Minutes
[2019-05-29] MEDS ORDERED: FAMOTIDINE 20 MG TABLET PO SCH (22:00)
== END 2019-05-29 19:30 | disposition home or self-care (01) ==
LOC: ER 03:02 → EH 09:03 → INTOOBSV 09:03 → 2N 14:23
PROVIDERS: ATTEND Surgery
PROC: 0FT44ZZ Resection of Gallbladder, Percutaneous Endoscopic Approach (ICD-10-PCS; principal; 2019-05-29 13:00)
DX: K80.12 Calculus of gallbladder with acute and chronic cholecystitis without obstruction (principal); E11.9 Type 2 diabetes mellitus without complications; E03.9 Hypothyroidism, unspecified; I10 Essential (primary) hypertension; Z87.442 Personal history of urinary calculi; Z79.899 Other long term (current) drug therapy; Z79.84 Long term (current) use of oral hypoglycemic drugs; Z90.49 Acquired absence of other specified parts of digestive tract; Z87.891 Personal history of nicotine dependence; Z98.51 Tubal ligation status; Z87.11 Personal history of peptic ulcer disease
CPT/HCPCS: 93005; 99285; 96361; 96375; 96365; 36415; 83690; 85025; 81025; 80053; 84484; 88304 ×2; 76705; 93976; 74177; 93010; 00790; 47562; G0378 ×2; J2250; J3490 ×3; J3010; J1885; J2270; J2710; J1170; S0164; J2550; J0330; J2405; J7030; J2704; J2543; J0131; 790

== ENCOUNTER → 2020-11-30 | Outpatient (CLI) | payer SELFPAY ==
[2020-11-30 10:31] VITALS: BP 124/72
--- NOTE | 2020-11-30 10:31 | ER RDC ASSESSMENT REPORT ---
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 - Symptoms Subjective Fever([place] feverish): No Chills: No Muscule Aches: No Runny Nose: No Sore Throat: No Cough (New or worsening chronic cough): No Shortness of breath: No Nausea or Vomiting: No Headache: No Abdominal Pain: No Diarrhea(3 or more loose stools in last 24 hours): No - Do you have any of the following Chronic lung disease: Asthma or emphysema or COPD: No Cystic Fibrosis: No Diabetes: Yes High Blood Pressure: Yes Cardiovascular Disease: Yes Chronic Kidney Disease: No Chronic Liver Disease: No Chronic blood disorder like Sickle Cell Disease: No Weak immune system due to disease or medication: No Neurologic condition that limits movement: No Developmental delay - Moderate to Severe: No Recent (within past 2 weeks) or current : No Morbid Obesity (>100 pounds over ideal weight): No - Objective Temperature: 98.8 F Pulse Rate: 84 Respiratory Rate: 18 Blood Pressure: 124/72 O2 Sat by Pulse Oximetry: 96 Objective: Given above, testing performed: covid General - General Stated Complaint: loss taste, smell Time Seen by Provider: 11/30/20 10:00 Mode of Arrival: Ambulatory Information source: Patient - HPI Notes: 49-year-old female presents to [facility] clinic for COVID-19 testing. Patient reports she did have contact with Covid positive patient. 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 She did receive her first dose of the COVID-19 vaccine but this was approximately 3 days after her exposure to the patient. Patient reports onset of symptoms 11/30/2020. She reports loss of taste, loss of smell, nasal congestion. She denies any fever or chills, GI upset, cough or shortness of breath, headache or muscle aches. - Related Data Allergies/Adverse Reactions: cefoxitin [Cefoxitin] Allergy (Severe, Verified 08/13/18 14:18) Anaphylaxis Sulfa (Sulfonamide Antibiotics) Allergy (Verified 08/13/18 14:18) codeine [Codeine] Adverse Reaction (Severe, Verified 08/13/18 14:18) VOMITING hydrocodone bitartrate [From Vicodin] Adverse Reaction (Severe, Verified 08/13/18 14:18) projectile vomiting oxycodone HCl [From Percocet] Adverse Reaction (Severe, Verified 08/13/18 14:18) projectile vomiting Past Medical History - General Information source: Patient - Social History Smoking Status: Never Smoker Family History: Reviewed & Not Pertinent - Past Medical History Cardiac Medical History: Reports: Hx Hypertension Denies: Hx Atrial Fibrillation, Hx Coronary Artery Disease, Hx Heart Attack Pulmonary Medical History: Reports: Hx Pneumonia, Hx Tuberculosis - hypothyroidism Denies: Hx Asthma, Hx Bronchitis, Hx COPD Neurological Medical History: Reports: None. Denies: Hx Cerebrovascular Accident, Hx Seizures Endocrine Medical History: Reports: Hx Diabetes Mellitus Type 2, Hx Hypothyroid ism Renal/ Medical History: Reports: Hx Kidney Stones. Denies: Hx Peritoneal Dialysis Malignancy Medical History: Reports: None GI Medical History: Reports: Hx Ulcer Musculoskeletal Medical History: Reports None, Denies Hx Arthritis Skin Medical History: Reports None Psychiatric Medical History: Reports: None Traumatic Medical History: Reports: Hx Fractures - finger Infectious Medical History: Reports: None Past Surgical History: Reports: Hx Appendectomy, Hx Kidney (Renal Surgery) - biopsy right kidney, Hx Mastectomy - lumpectomy, left, Hx Tonsillectomy, Hx Tubal Ligation. Denies: Hx Pacemaker Physical Exam - General General appearance: Appears well, Alert In distress: None Notes: PHYSICAL EXAMINATION: GENERAL: Well-appearing and in no acute distress. HEAD: Atraumatic, normocephalic. EYES: sclera anicteric, conjunctiva are normal. ENT: nares patent. Moist mucous membranes. NECK: Normal range of motion, supple without lymphadenopathy. LUNGS: No increased work of breathing. Lung sounds CTAB and equal. No wheezes rales or rhonchi. HEART: Regular rate and rhythm without murmurs. ABDOMEN: Soft, nontender, normal bowel sounds, no guarding. EXTREMITIES: Normal range of motion, no pitting edema. No cyanosis. NEUROLOGICAL: A&O x 3. Normal speech. PSYCH: Normal mood, normal affect. SKIN: Warm, Dry, normal turgor, no rashes or lesions noted Patient Education/Counseling Counseling/Education: Patient presents with symptoms associated with possible Covid 19 infection. Patient does not have emergency worrying symptoms such as difficulty breathing, shortness of breath, chest pain, pressure, confusion or cyanosis. Patient appears suitable for discharge as vital signs are stable and patient is nontoxic in appearance. Good return precautions have been discussed with patient, patient verbalized understanding and is agreeable with discharge plan of care at this time. Guidance for worsening S/SX: As a person under investigation for Covid 19, the [facility] Health and Human Services, division of public health advises you to adhere to the following guidance until your test results are reported to you. If your test result is positive, you will receive additional information from your provider and your local health department at that time. Remain at home until you are cleared by the health provider or public health authorities. Keep a log of visitors to your home, notify any visitors to your home of your isolation status. If you plan to move to a new address or leave the county, notify the local health department in your County. Call your doctor or seek care if you have an urgent medical need. Before seeking medical care, call ahead to get instructions from the provider before arriving at the medical office clinic or hospital. Notify them that you are being tested for the virus that causes Covid 19 so that arrangements can be made, as necessary, to prevent transmission to others in the healthcare setting. Next, notify the local health department in your county. If a medical emergency arises and you need to call 911, inform the first responders that you are being tested for the virus that causes Covid 19. Next, notify the local health department in your county. RDC Discharge - Discharge Clinical Impression: Anosmia, Encounter for screening for COVID-19 Condition: Good Disposition: Home; Selfcare
== END ==
LOC: RDC 09:53
PROVIDERS: ATTEND Registered Nurse
DX: Z20.822 Contact with and (suspected) exposure to COVID-19 (principal); R09.81 Nasal congestion; R43.8 Other disturbances of smell and taste; I10 Essential (primary) hypertension; E11.9 Type 2 diabetes mellitus without complications; E03.9 Hypothyroidism, unspecified; Z87.01 Personal history of pneumonia (recurrent); Z88.1 Allergy status to other antibiotic agents; Z88.6 Allergy status to analgesic agent
CPT/HCPCS: 87635; C9803; 99202; 99211